=== PATIENT | male | born 1950 | race Caucasian/White ===

== ENCOUNTER 2018-02-21 09:28 | Day surgery (SDC) | payer MEDICARE, OTHER ==
[~2018-02-21 09:28] MED LIST: ACETAZOLAMIDE 250 MG TABLET PO ONE; Ak-Dilate OPHTHALMIC*** 0.71 ML, Cyclogyl 1% OPHTH SOL 5 ML 0.71 ML, GATIFLOXACIN 0.5% ... OP ONE; BETADINE 5% OPHTHALMIC 30 ML OP ONE; Lactated Ringers 1,000 ML IV ONE; Lactated Ringers 1,000 ML IV SCH; TETRACAINE 0.5% STERI-UNIT SOL OP ONE; Zofran 4 MG/2 ML VIAL IV PRN
[2018-02-21] MEDS ORDERED: DIPRIVAN 200 MG/20 ML IV ONE (09:29)
[2018-02-21 10:20] VITALS: O2SAT 96
[2018-02-21] MEDS ORDERED: BSS 500 ML, Fortaz/Tazicef 1 GM** 0.2 G IO ONE ×2 (12:00)
[2018-02-21] MEDS ORDERED: LIDOCAINE HCL 1% AMPUL 5 ML IJ ONE (12:00)
[2018-02-21] MEDS ORDERED: Epinephrine Preservative Free 1 MG/ML INTRAOP ONE (12:00)
[2018-02-21 13:11] VITALS: BP 145/71; PULSE 68
--- NOTE | 2018-02-21 13:25 | OP ---
DATE/TIME OF OPERATION: 02/21/2018 1155 TIME DICTATED: 1255 PREOPERATIVE DIAGNOSIS: Senile cataract of left eye. POSTOPERATIVE DIAGNOSIS: Senile cataract of left eye. SURGEON: Calli Booker MD LIFE INSURANCE AGENT: None. OPERATION: Cataract extraction of left eye with an intraocular lens implant. STANDARD COMPLEX ___X___ ANESTHESIA: MAC. ___X___ Monitored anesthesia care in combination with topical and intra-cameral anesthesia (because of the established specific risk of reflux, arrhythmias, or an anxiety attack associated with ocular manipulation as well as difficulty of the dining service inspector to manage such potentially catastrophic events while simultaneously attempting to complete the surgical procedure, it was deemed necessary for the patient's safety to have an anesthesiologist or a nurse freezer laboratory technician present during the procedure whenever possible. The anesthesiologist or the nurse freezer laboratory technician was utilized to monitor and regulate the intravenous sedation of the patient, so the patient was cooperative, relaxed, and comfortable). Topical anesthesia using Tetracaine eye drops together with intra cameral anesthesia using Lidocaine 1% MPF. The nurse was utilized to monitor the patient. ANESTHESIA PROVIDER: Jarrell Castro CRNA. COMPLICATIONS: None. BLOOD LOSS: None. INDICATIONS: The patient is undergoing cataract surgery in the hopes of eliminating the visual complaints and difficulty. PROCEDURE: After arriving at the facility's outpatient surgery area, an IV was started; the patient was given 5 mg of p.o. Versed. (If an anesthesia provider was not monitoring the patient) The patient was then given topical anesthetic Tetracaine eye drops. A cotton pellet was soaked into a solution of a combination of Zymaxid 0.5%, Darren-Synephrine 2.5% and Ocufen (other drops might have been substituted referenced in the patient's record). The pellet was inserted by the RN into the lower conjunctival cul-de-sac with a sterile forceps and left for 20 minutes. The pellet was then removed by the RN with a sterile forceps before taking the patient to the operating room. The preoperative area nurse identified the patient and marked the correct eye to be operated on. I identified the correct eye to be operated on and marked it appropriately in the outpatient surgery area. The patient was then taken into the operating room. Tetracaine eye drops were installed again in the correct eye. The eyelids and the lashes and the lid margins were scrubbed with Betadine solution. One drop of the diluted Betadine solution was placed in the conjunctival cul-de-sac for 45 seconds and then was irrigated. A drop of Tetracaine Gel was placed in the conjunctival cul-de-sac. The patient's forehead was taped to secure it during the procedure. The patient was monitored. The patient was then draped in the usual way for this procedure. An eye speculum was used to separate the eyelids. The eye was then fixated and a temporal 2.5 mm incision was made in the clear cornea temporally at the limbus. Through the incision, 0.25 cc of 1% non-preserved lidocaine was injected into the anterior chamber for intracameral anesthesia. The anterior chamber was then filled with viscoelastic. ___X__ The pupil was small. I felt that it would be safer to mechanically dilate the pupil. A Malyugin ring was used at this point which dilated the pupil. That was removed at the end of the procedure prior to aspiration of the viscoelastic from the anterior chamber and posterior to the intraocular lens implant. The cataract had a great amount of cortical changes. That rendered seeing the anterior capsule difficult for a safe performance of an anterior capsulotomy. I injected an air bubble into the anterior chamber. I then injected 1 ML of vision blue solution into the anterior chamber. The vision blue solution was irrigated from the anterior chamber after 30 seconds. The anterior capsule was stained which facilitated performing the anterior capsulotomy safely. After that was completed, a cystotome was introduced into the anterior chamber and a round anterior capsulotomy was performed. The capsule was removed by a forceps. Hydrodissection was next carried utilizing a 25-gauge cannula and balanced salt solution to delineate the cortical material from the capsule and the nucleus from the cortical material. The nucleus was rotated freely into the capsular bag with no difficulty. The phaco tip of the [employer] Phacoemulsifier was introduced into the anterior chamber and two grooves were made into the nucleus 90 degrees apart. Using two spatulas resulted into the nucleus being fractured into four quadrants. The phaco tip was then used to remove each quadrant of the nucleus. Viscoelastic was used during this process to protect the corneal endothelium. Once the entire nucleus was removed, the phaco tip then was removed and the irrigation tip was introduced into the eye and the cortex was removed. The posterior capsule was polished. It was noticed that there was a tear into the posterior capsule with few vitreous strands into the pupil plan. An anterior vitrectomy was performed. A 19.50 diopter, [id number], posterior chamber lens implant, was inspected and found to be grossly normal. The implant was inserted into the implant injector cartridge; Viscoelastic again was introduced into the anterior chamber, which filled the capsular bag. The implant injector's cartridge tip was placed at the limbal wound and the posterior chamber implant was released into the capsular bag and rotated appropriately. The implant was found to be into the capsular bag and it was centered. ___X__ 0.2 ml of Tri-Moxi was introduced via 27 gauge cannula into the vitreous cavity through the ciliary processes. Viscoelastic was aspirated from the anterior chamber and posterior to the intraocular lens implant from the capsular bag using the irrigating tip. The anterior chamber was irrigated and filled with 5 cc antibiotic solution (500 cc of BSS plus 2 ml of Fortaz 100 mg/ml) ( if patient was not allergic to the medication). The lips of the corneal incision were hydrated using BSS solution. The anterior chamber was checked and found to be water tight. One drop each of antibiotic, steroid and NSAID drops (refer to chart for drops used) were placed in the conjunctival cul-de-sac of the operated eye. Patient tolerated the procedure quite well and left the operating room in satisfactory condition. DISCHARGE SUMMARY: The patient was released in stable condition. The patient and those with the patient were given an instruction sheet as of how to care for the eye after surgery as well as counseling on any abnormal laboratory studies by the postoperative RN. The patient was also given an appointment card for follow-up in the office and is to call immediately for any difficulties including but not limited to pain in the eye, decreased vision, discharge from the eye, headache and or fever. DISCHARGE DIAGNOSIS: Pseudophakia of left eye.
== END 2018-02-21 13:19 | disposition home or self-care (01) ==
LOC: SDC 09:28
PROVIDERS: ATTEND Ophthalmology
DX: H25.9 Unspecified age-related cataract (principal); I10 Essential (primary) hypertension; K21.9 Gastro-esophageal reflux disease without esophagitis; N40.0 Benign prostatic hyperplasia without lower urinary tract symptoms; E78.00 Pure hypercholesterolemia, unspecified; Z79.899 Other long term (current) drug therapy
CPT/HCPCS: 66982; 67005; 94250; C1780; J0171; J2704; A9270-GY

== ENCOUNTER → 2018-07-24 | Emergency (ER) | payer MEDICARE, OTHER | LOC: ED 02:02 | DX: Z53.9 Procedure and treatment not carried out, unspecified reason (principal) ==

== ENCOUNTER 2019-06-27 17:23 | Emergency (ER) | payer MEDICARE, OTHER ==
--- NOTE | 2019-06-27 17:30 | ERPHSYRPT ---
- History of Present Illness Time Seen by Provider: 06/27/19 17:30 Historian: patient Exam Limitations: no limitations Physician History: Is a 69-year-old male who has history of gastroesophageal reflux disease on omeprazole and hypertension on lisinopril and amlodipine medication. The patient presents with left flank pain with radiation to his left groin and left lower quadrant. Patient has a history of nephrolithiasis. He has had ureteral stone on the right side in the past. Patient states the pain has been worsening. Patient denies chest pain, denies shortness of breath, denies nausea vomiting and diarrhea. Timing/Duration: today Quality: aching, stabbing Abdominal Pain Onset Location: LLQ, flank Pain Radiation: LLQ (Left), flank (Left), other (Left groin) Severity of Pain-Max: moderate Severity of Pain-Current: moderate Modifying Factors: Improves With: nothing Associated Symptoms: denies symptoms Previous symptoms: same symptoms as today Allergies/Adverse Reactions: No Known Drug Allergies Allergy (Verified 02/21/18 09:59) Home Medications: Amlodipine Besylate 10 mg [Norvasc 10 MG] 10 mg PO DAILY 04/25/12 [History] Lisinopril 20 mg PO DAILY 04/25/12 [History] Omeprazole [Prilosec] 40 mg PO DAILY 04/25/12 [History] Hx Tetanus, Diphtheria Vaccination/Date Given: Yes (UNSURE) Hx Influenza Vaccination/Date Given: Yes (FEBRUARY) Hx Pneumococcal Vaccination/Date Given: No - Review of Systems Constitutional: No Symptoms Eyes: No Symptoms Ears, Nose, & Throat: No Symptoms Respiratory: No Symptoms Cardiac: No Symptoms Abdominal/Gastrointestinal: Abdominal Pain (Left lower quadrant and left groin) Genitourinary Symptoms: Flank Pain (Left flank) Musculoskeletal: No Symptoms Skin: No Symptoms Neurological: No Symptoms Psychological: No Symptoms Endocrine: No Symptoms Hematologic/Lymphatic: No Symptoms Immunological/Allergic: No Symptoms All Other Systems: Reviewed and Negative - Past Medical History Pertinent Past Medical History: Yes Neurological History: No Pertinent History ENT History: No Pertinent History Cardiac History: Hypertension Respiratory History: No Pertinent History Endocrine Medical History: No Pertinent History Musculoskeletal History: No Pertinent History GI Medical History: Colitis, Diverticulitis History: No Pertinent History, Other Psycho-Social History: No Pertinent History Male Reproductive Disorders: Prostate Problems Other Medical History: ENLARGED PROSTATE - Past Surgical History Past Surgical History: No Neuro Surgical History: No Pertinent History Cardiac: No Pertinent History Respiratory: No Pertinent History Gastrointestinal: Hernia Repair Genitourinary: No Pertinent History Musculoskeletal: No Pertinent History Male Surgical History: No Pertinent History Other Surgical History: RIGHT INGUINAL HERNIA and colonoscopy - Social History Smoking Status: Former smoker Exposure to second hand smoke: No Drug Use: none Patient Lives Alone: No - Nursing Vital Signs Nursing Vital Signs: Initial Vital Signs Temperature 97.8 F 06/27/19 17:50 Pulse Rate 96 H 06/27/19 17:50 Respiratory Rate 21 06/27/19 17:50 Blood Pressure 173/97 06/27/19 17:50 O2 Sat by Pulse Oximetry 97 06/27/19 17:50 Pain Scale Pain Intensity 7 - Physical Exam General Appearance: mild distress, alert, anxiety Eye Exam: PERRL/EOMI Ears, Nose, Throat Exam: normal ENT inspection, moist mucous membranes Neck Exam: normal inspection, non-tender, supple, full range of motion Respiratory Exam: normal breath sounds, lungs clear, airway intact, No chest tenderness, No respiratory distress Gastrointestinal/Abdomen Exam: soft, normal bowel sounds, No tenderness, No guarding Back Exam: normal inspection, normal range of motion, CVA tenderness (Left), No vertebral tenderness Extremity Exam: normal inspection, normal range of motion, pelvis stable Neurologic Exam: alert, oriented x 3, cooperative, 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 Skin Exam: normal color, warm, dry Lymphatic Exam: adenopathy SpO2 Interpretation: normal O2 Delivery: Room Air Ordered Tests: Active Orders 24 hr Category Date Time Status ABDOMEN AND PELVIS W/0 CONTRAS [CT] Stat Exams 06/27/19 18:13 Taken UA W/RFX UR CULTURE Stat Lab 06/27/19 17:50 Completed Medication Summary Discontinued Medications Generic Name Dose Route Start Last Admin Trade Name Freq PRN Reason Stop Dose Admin Hydromorphone HCl 1 mg 06/27/19 18:11 06/27/19 18:49 Hydromorphone 1 Mg/Ml Ampule IM 06/27/19 18:12 1 mg STAT ONE Administration Hydromorphone HCl Confirm 06/27/19 18:47 Hydromorphone 1 Mg/Ml Ampule Administered 06/27/19 18:48 Dose 1 mg .ROUTE .STK-MED ONE Ketorolac Tromethamine 60 mg 06/27/19 18:14 06/27/19 18:48 Toradol 30 Mg Injection IM 06/27/19 18:15 60 mg STAT ONE Administration Ketorolac Tromethamine Confirm 06/27/19 18:47 Toradol 30 Mg Injection Administered 06/27/19 18:48 Dose 60 mg .ROUTE .STK-MED ONE Ondansetron HCl 4 mg 06/27/19 18:11 06/27/19 18:49 Zofran Odt 4 Mg PO 06/27/19 18:12 4 mg STAT ONE Administration Ondansetron HCl Confirm 06/27/19 18:47 Zofran Odt 4 Mg Administered 06/27/19 18:48 Dose 4 mg .ROUTE .STK-MED ONE Lab/Rad Data: Laboratory Results 06/27/19 Range/Units 17:50 Urine Color YELLOW (YELLOW) Urine Appearance SLIGHTLY CLOUDY (CLEAR) Urine pH 6.0 (5-6) Ur Specific [place] 1.015 (1.005-1.025) Urine Protein NEGATIVE (Negative) Urine Ketones NEGATIVE (NEGATIVE) Urine Blood LARGE (0-5) [place] Urine Nitrite NEGATIVE (NEGATIVE) Urine Bilirubin NEGATIVE (NEGATIVE) Urine Urobilinogen NEGATIVE (0-1) mg/dL Ur Leukocyte Esterase SMALL (NEGATIVE) Urine WBC (Auto) 0-2 (0-5) /HPF Urine RBC (Auto) >101 (0-2) /HPF U Epithel Cells (Auto) NONE (FEW) /HPF Urine Bacteria (Auto) NONE (NEGATIVE) /HPF Urine Mucus (Auto) SLIGHT (NEGATIVE) /HPF Urine Culture Reflexed NO (NO) Urine Glucose NEGATIVE (NEGATIVE) mg/dL - Progress Progress: improved, pain not gone completely, re-examined Progress Note: 06/27/19 18:57 Scan of the abdomen and pelvis reveals a new 3 to 4 mm distal left ureteral stone. Minimal hydroureter and mild hydronephrosis present and minimal perinephric stranding. There are no other acute intra-abdominal findings Counseled pt/family regarding: lab results, diagnosis, need for follow-up, rad results - Departure Departure Disposition: Home Clinical Impression: Ureterolithiasis Condition: Stable Critical Care Time: No Referrals: ETHEL GARNER MD [Primary Care Provider] - Additional Instructions: Drink plenty of fluids. Add ibuprofen 600 mg orally 3 times a day with food. Call your urologist tomorrow to arrange for follow-up appointment. Prescriptions: Hydrocodone/APAP 5-325 Tab^^^ [[place] 5-325 Tablet^^^] 1 tab PO Q6HPRN PRN #10 tablet MDD 6 PRN Reason: Pain
[2019-06-27 17:57] VITALS: BP 173/97
[2019-06-27 18:09] VITALS: PULSE 84; O2SAT 95
[2019-06-27] MEDS ORDERED: ZOFRAN ODT 4 MG PO ONE (18:11)
[2019-06-27] MEDS ORDERED: Hydromorphone 1 mg/ml Ampule IM ONE (18:11)
[2019-06-27] MEDS ORDERED: TORAdol 30 mg Injection IM ONE (18:14)
[2019-06-27 18:34] LABS: Appearance SLIGHTLY CLOUDY (CLEAR); Bilirubin NEGATIVE (NEGATIVE); Blood LARGE Ery/ul (0-5); Glucose NEGATIVE (NEGATIVE); Ketones NEGATIVE (NEGATIVE); Leukocyte Esterase SMALL (NEGATIVE); Mucus SLIGHT /HPF (NEGATIVE); Nitrite NEGATIVE (NEGATIVE); Protein,Urine Dip NEGATIVE (Negative); Specific Gravity 1.015 (1.005-1.025); Urobilinogen NEGATIVE mg/dL (0-1); WBC 0-2 /HPF (0-5)
[2019-06-27 18:35] LABS: RBC >101 /HPF (0-2)
[2019-06-27] MEDS ORDERED: ZOFRAN ODT 4 MG ONE (18:47)
[2019-06-27] MEDS ORDERED: TORAdol 30 mg Injection ONE (18:47)
[2019-06-27] MEDS ORDERED: Hydromorphone 1 mg/ml Ampule ONE (18:47)
[2019-06-27] MEDS ORDERED: NORCO 5/325 MG PO ONE (19:08)
[2019-06-27] MEDS ORDERED: NORCO 5/325 MG ONE (19:15)
--- NOTE | 2019-06-28 08:44 | XRAY ---
Indication: Left abdomen/flank pain. Multiple contiguous axial images obtained through the abdomen and pelvis without contrast as ordered. Comparison: November 19, 2016. Lung bases demonstrates minimal fibrosis/scarring without infiltrate or effusion. Heart is not enlarged. Noncontrasted stomach and bowel loops appear nonobstructed. Normal appendix. Stable sigmoid diverticulosis. No free fluid/air. New 3-4 mm distal left ureter calculus approximately 3 cm proximal to the UVJ. Proximal left ureter is slightly prominent and there is mild hydronephrosis with minimal perinephric stranding consistent with partial obstructive uropathy. Stable hepatic cyst, gallstones, enlarged/nodular prostate gland, and small bilateral fatty inguinal hernias. Remaining liver, gallbladder, pancreas, spleen, adrenal glands, right kidney, right ureter, and bladder appear unremarkable for noncontrast exam. Again mild aortoiliac calcifications without AAA. Osseous structures intact with stable multilevel thoracolumbosacral lytic and sclerotic lesions favored to be benign given stability over the years. Impression: 1. New 3-4 mm distal left ureter calculus producing partial obstruction. 2. Stable hepatic cyst, sigmoid diverticulosis, gallstones, enlarged/nodular prostate gland, fatty inguinal hernias, and chronic bony findings.
== END 2019-06-27 19:27 | disposition home or self-care (01) ==
LOC: ED 17:23
DX: N20.1 Calculus of ureter (principal); I10 Essential (primary) hypertension; Z79.899 Other long term (current) drug therapy; R10.9 Unspecified abdominal pain; R10.32 Left lower quadrant pain
CPT/HCPCS: 74176; 81001; 96372; 99284; J1170; J1885; Q0162; A9270-GY

== ENCOUNTER 2022-03-20 02:29 | Emergency (ER) | payer MEDICARE, OTHER ==
[2022-03-20] MEDS ORDERED: Sodium Chloride 0.9% 1000 ML 1,000 ML IV STA ×2 (02:41→04:24)
[2022-03-20] MEDS ORDERED: Sodium Chloride 0.9% 1000 ML 1,000 ML ONE ×2 (02:53→04:27)
[2022-03-20 03:02] LABS: Absolute Neutrophil Ct (ANC) 5.63 x10^3/uL (1.4-6.9); Basophil (Absolute #) 0.05 x10^3/uL (0-0.4); Eosinophil % 3.8 % (0.00-5.0); Eosinophil (Absolute #) 0.31 x10^3/uL (0-0.5); Hematocrit 41.8 % (42-50); Hemoglobin 14.5 g/dL (12.5-18.0); Lymphocyte (Absolute #) 1.48 x10^3/uL (1.0-4.6); Mean Cell Volume 87.8 fL (78-100); Mean Corpuscular Hemoglobin 30.5 pg (26-32); Mean Corpuscular Hgb Concent. 34.7 g/dL (32-36); Mean Platelet Volume 8.7 fL (7.5-11.0); Monocyte (Absolute #) 0.69 x10^3/uL (0.0-1.3); Monocytes % 8.4 % (0.0-12.0); Neutrophil % 68.3 % (36.0-66.0); Platelet Count 299 x10^3/uL (150-450); Red Blood Count 4.76 x10^6/uL (4.1-5.6); Red Cell Distribution Width 12.5 % (11.5-14.0); White Blood Count 8.2 x10^3/uL (4.0-10.5)
[2022-03-20 03:29] LABS: ALBUMIN 3.9 g/dL (3.5-5.0); ALKALINE PHOSPHATASE 81 U/L (38-126); ANION GAP 11.5 MEQ/L (5-15); BLOOD UREA NITROGEN 17 mg/dL (9-20); CHLORIDE 107 mmol/L (98-107); Calcium 9.2 mg/dL (8.4-10.2); Carbon Dioxide 24 mmol/L (22-30); Creatinine 1 1.34 mg/dL (0.66-1.25); EST GLOMERULAR FILTRATION RATE 56.2 ML/MIN; Glucose 123 mg/dL (74-106); MAGNESIUM 1.8 mg/dL (1.6-2.3); Potassium 3.1 mmol/L (3.5-5.1); SGOT/AST 49 U/L (17-59); SGPT/ALT 19 U/L (0-50); SODIUM 140 mmol/L (137-145); TROPONIN < 0.012 ng/mL (0.000-0.034); Total Protein 6.7 g/dL (6.3-8.2)
[2022-03-20 03:40] LABS: Appearance CLEAR (CLEAR); Bilirubin NEGATIVE (NEGATIVE); Dipstick done @ ? MAIN LAB; Glucose NEGATIVE (NEGATIVE); Ketones SMALL-15 (NEGATIVE); Nitrite NEGATIVE (NEGATIVE); Ph 6.5 (5-6); Protein,Urine Dip NEGATIVE (Negative); RBC NEGATIVE Ery/ul (0-5); Urobilinogen 0.2 mg/dL (0-1)
[2022-03-20 03:42] LABS: INFLUENZA A NEGATIVE (NEGATIVE); INFLUENZA B NEGATIVE (NEGATIVE); RESPIRATORY SYNCTIAL VIRUS NEGATIVE (Negative)
[2022-03-20 03:49] LABS: Mucus SLIGHT /HPF (NEGATIVE); RBC 0-2 /HPF (0-2)
[2022-03-20 04:01] LABS: SARS-CoV-2 Xpert Express POSITIVE (NEGATIVE)
[2022-03-20 04:17] LABS: Urine Cultured Indicated? NO
[2022-03-20] MEDS ORDERED: POTASSIUM CHLORIDE 20 mEq IN WATER 100ML 200 ML IV ONE (04:27)
[2022-03-20] MEDS: POTASSIUM CHLORIDE 20 mEq IN WATER 100ML 20 MEQ/100 ML BAG IV SCH ×2 (04:31→06:22)
--- NOTE | 2022-03-20 06:46 | ERPHSYRPT ---
- History of Present Illness Source: patient, EMS Exam Limitations: no limitations Patient Subjective Stated Complaint: pt states he has been feeling ill for the past 2 weeks. states heh has been feeling nauseous, has frequent cough, and some congestion. states he has not been taking his medications since he has been feeling sick. Triage Nursing Assessment: pt alert and oriented, answers questions approp. pt arrive per ambulance and transfers to stretcher per self with steady gait noted. respirations nonlabored with lungs cta. skin warm and dry. occasional cough note d. pt states productive at home. Timing/Duration: week(s) (two weeks) Associated Symptoms: cough, malaise, weakness Hx Tetanus, Diphtheria Vaccination/Date Given: Yes Hx Influenza Vaccination/Date Given: No Hx Pneumococcal Vaccination/Date Given: No Immunizations Up to Date: Yes - History of Present Illness Time Seen by Provider: 03/20/22 06:41 Physician History: pt states he has been feeling ill for the past 2 weeks. states heh has been feeling nauseous, has frequent cough, and some congestion. states he has not been taking his medications since he has been feeling sick. (MAGALIS,MINA) Allergies/Adverse Reactions: No Known Drug Allergies Allergy (Verified 03/20/22 02:45) Home Medications: Amlodipine Besylate 10 mg [Norvasc 10 MG] 10 mg PO DAILY 04/25/12 [History] Lisinopril 20 mg PO DAILY 04/25/12 [History] Omeprazole [Prilosec] 40 mg PO DAILY 04/25/12 [History] Travel Risk - International Travel Have you traveled outside of the country in past 3 weeks: No - Coronavirus Screening Are you exhibiting any of the following symptoms?: Yes Symptoms: Cough: New Onset, Headaches/Body Aches/Fatigue Close contact with a COVID-19 positive Pt in past 14-21 Days: No - Vaccine Status Have you recieved a Covid-19 vaccination: No - Review of Systems Constitutional: Malaise, Weakness, No Fever, No Chills Eyes: No Symptoms Ears, Nose, & Throat: No Symptoms Respiratory: Cough, No Dyspnea Cardiac: No Chest Pain, No Edema, No Syncope Abdominal/Gastrointestinal: No Abdominal Pain, No Nausea, No Vomiting, No Diarrhea Genitourinary Symptoms: No Dysuria Musculoskeletal: No Back Pain, No Neck Pain Skin: No Rash Neurological: No Dizziness, No Focal Weakness, No Sensory Changes Psychological: No Symptoms Endocrine: No Symptoms All Other Systems: Reviewed and Negative - Past Medical History Pertinent Past Medical History: Yes Neurological History: No Pertinent History ENT History: No Pertinent History Cardiac History: Hypertension Respiratory History: No Pertinent History Endocrine Medical History: No Pertinent History Musculoskeletal History: No Pertinent History GI Medical History: Colitis, Diverticulitis History: No Pertinent History, Other Psycho-Social History: No Pertinent History Male Reproductive Disorders: Prostate Problems Other Medical History: ENLARGED PROSTATE - Past Surgical History Past Surgical History: Yes Neuro Surgical History: No Pertinent History Cardiac: No Pertinent History Respiratory: No Pertinent History Gastrointestinal: Hernia Repair Genitourinary: No Pertinent History Musculoskeletal: No Pertinent History Male Surgical History: No Pertinent History Other Surgical History: RIGHT INGUINAL HERNIA and colonoscopy - Social History Smoking Status: Former smoker Exposure to second hand smoke: No Drug Use: none Patient Lives Alone: Yes - Physical Exam General Appearance: no apparent distress, alert Eye Exam: PERRL/EOMI, eyes nml inspection Ears, Nose, Throat Exam: normal ENT inspection, TMs normal, pharynx normal, moist mucous membranes Neck Exam: normal inspection, non-tender, supple, full range of motion Respiratory Exam: diminished breath sounds, No respiratory distress Cardiovascular Exam: regular rate/rhythm, normal heart sounds, normal peripheral pulses Gastrointestinal/Abdomen Exam: soft, normal bowel sounds, No tenderness, No mass Back Exam: normal inspection, normal range of motion, No CVA tenderness, No vertebral tenderness Extremity Exam: normal inspection, normal range of motion, pelvis stable Neurologic Exam: alert, oriented x 3, cooperative, normal mood/affect, nml cer ebellar function, nml station & gait, sensation nml, No motor deficits Skin Exam: normal color, warm, dry, No rash Lymphatic Exam: No adenopathy SpO2: 95 - Nursing Vital Signs Nursing Vital Signs: Initial Vital Signs Temperature 97.1 F 03/20/22 02:31 Pulse Rate 98 H 03/20/22 02:31 Respiratory Rate 18 03/20/22 02:31 Blood Pressure 166/101 03/20/22 02:31 O2 Sat by Pulse Oximetry 98 03/20/22 02:31 Pain Scale Pain Intensity 0 - Course Nursing assessment & vital signs reviewed: Yes - Radiology Exams Chest X-ray Interpretation: Reviewed by me (COPD changes), No Pneumonia Ordered Tests: Active Orders 24 hr Category Date Time Status Manager Reliability STAT Care 03/20/22 04:25 Completed EKG-ER Only STAT Care 03/20/22 02:41 Completed Oxygen-ED Only Nasal Cannula 2 lpm Care 03/20/22 02:41 Completed CHEST 1 VIEW (PORTABLE) Stat Exams 03/20/22 02:41 Completed CBC W DIFF Stat Lab 03/20/22 02:59 Completed CMP Stat Lab 03/20/22 02:59 Completed MAGNESIUM Stat Lab 03/20/22 02:59 Completed Potassium Urgent Lab 03/20/22 08:54 Completed TROPONIN Stat Lab 03/20/22 02:59 Completed UA W/RFX CULTURE Stat Lab 03/20/22 03:31 Completed Medication Summary Discontinued Medications Generic Name Dose Route Start Last Admin Trade Name Freq PRN Reason Stop Dose Admin Sodium Chloride 1,000 mls @ 999 mls/hr 03/20/22 02:41 03/20/22 04:27 Sodium Chloride 0.9% 1000 Ml IV 03/20/22 03:41 Infused .Q1H1M STA Infusion Sodium Chloride Confirm 03/20/22 02:53 Sodium Chloride 0.9% 1000 Ml Administered 03/20/22 02:54 Dose 1,000 mls @ ud .ROUTE .STK-MED ONE Potassium Chloride 20 meq in 100 mls @ 50 mls/hr 03/20/22 04:30 03/20/22 06:22 Potassium Chloride 20 Meq In Water 100ml IV 03/20/22 08:29 50 mls/hr Q2H ANASTACIO Administration Sodium Chloride 1,000 mls @ 250 mls/hr 03/20/22 04:24 03/20/22 09:00 Sodium Chloride 0.9% 1000 Ml IV 03/20/22 08:23 Infused .Q4H STA Infusion Sodium Chloride Confirm 03/20/22 04:27 Sodium Chloride 0.9% 1000 Ml Administered 03/20/22 04:28 Dose 1,000 mls @ ud .ROUTE .STK-MED ONE Potassium Chloride Confirm 03/20/22 04:27 Potassium Chloride 20 Meq In Water 100ml Administered 03/20/22 04:28 Dose 200 mls @ ud IV .STK-MED ONE Potassium Chloride Confirm 03/20/22 07:40 Potassium Chloride Tab 10 Meq Tab Administered 03/20/22 07:41 Dose 40 meq PO .STK-MED ONE Potassium Chloride 40 meq 03/20/22 07:41 03/20/22 07:42 Potassium Chloride Tab 10 Meq Tab PO 03/20/22 07:42 40 meq STAT ONE Administration Lab/Rad Data: Laboratory Result Diagrams 03/20/22 02:59 03/20/22 08:54 Laboratory Results 03/20/22 03/20/22 03/20/22 Range/Units 08:54 03:31 02:59 WBC (4.0-10.5) x10^3/uL RBC (4.1-5.6) x10^6/uL Hgb (12.5-18.0) g/dL Hct (42-50) % MCV (78-100) fL MCH (26-32) pg MCHC (32-36) g/dL RDW (11.5-14.0) % Plt Count (150-450) x10^3/uL MPV (7.5-11.0) fL Gran % (36.0-66.0) % Immature Gran % (Auto) (0.00-0.4) % Nucleat RBC Rel Count (0.00-0.1) % Eos # (Auto) (0-0.5) x10^3/uL Immature Gran # (Auto) (0.00-0.03) x10^3u/L Absolute Lymphs (auto) (1.0-4.6) x10^3/uL Absolute Monos (auto) (0.0-1.3) x10^3/uL Absolute Nucleated RBC (0.00-0.01) x10^3u/L Lymphocytes % (24.0-44.0) % Monocytes % (0.0-12.0) % Eosinophils % (0.00-5.0) % Basophils % (0.0-0.4) % Absolute Granulocytes (1.4-6.9) x10^3/uL Basophils # (0-0.4) x10^3/uL Sodium (137-145) mmol/L Potassium 3.7 (3.5-5.1) mmol/L Chloride (98-107) mmol/L Carbon Dioxide (22-30) mmol/L Anion Gap (5-15) MEQ/L BUN (9-20) mg/dL Creatinine (0.66-1.25) mg/dL Estimated GFR ML/MIN Glucose (74-106) mg/dL Calcium (8.4-10.2) mg/dL Magnesium (1.6-2.3) mg/dL Total Bilirubin (0.2-1.3) mg/dL AST (17-59) U/L ALT (0-50) U/L Alkaline Phosphatase (38-126) U/L Troponin I (0.000-0.034) ng/mL Serum Total Protein (6.3-8.2) g/dL Albumin (3.5-5.0) g/dL Urinalys Dipstick Clnc MAIN LAB Urine Color YELLOW (YELLOW) Urine Appearance CLEAR (CLEAR) Urine pH 6.5 (5-6) Ur Specific [place] 1.020 (1.005-1.025) POC Urine Protein Conf NEGATIVE (Negative) Urine Ketones SMALL-15 A (NEGATIVE) Urine Nitrite NEGATIVE (NEGATIVE) Urine Bilirubin NEGATIVE (NEGATIVE) Urine Urobilinogen 0.2 (0-1) mg/dL Urine Leukocytes NEGATIVE (NEGATIVE) Urine WBC (Auto) 3-5 A (0-5) /HPF Urine RBC (Auto) 0-2 (0-2) /HPF U Epithel Cells (Auto) NONE (FEW) /HPF Urine Bacteria (Auto) NONE (NEGATIVE) /HPF Urine RBC NEGATIVE (0-5) [place] Urine Mucus (Auto) SLIGHT A (NEGATIVE) /HPF Ur Culture Indicated? NO Urine Glucose NEGATIVE (NEGATIVE) mg/dL Influenza Type A Ag NEGATIVE (NEGATIVE) Influenza Type B Ag NEGATIVE (NEGATIVE) RSV (PCR) NEGATIVE (Negative) SARS-CoV-2 (PCR) POSITIVE A (NEGATIVE) 03/20/22 03/20/22 Range/Units 02:59 02:59 WBC 8.2 (4.0-10.5) x10^3/uL RBC 4.76 (4.1-5.6) x10^6/uL Hgb 14.5 (12.5-18.0) g/dL Hct 41.8 L (42-50) % MCV 87.8 (78-100) fL MCH 30.5 (26-32) pg MCHC 34.7 (32-36) g/dL RDW 12.5 (11.5-14.0) % Plt Count 299 (150-450) x10^3/uL MPV 8.7 (7.5-11.0) fL Gran % 68.3 H (36.0-66.0) % Immature Gran % (Auto) 0.9 H (0.00-0.4) % Nucleat RBC Rel Count 0.0 (0.00-0.1) % Eos # (Auto) 0.31 (0-0.5) x10^3/uL Immature Gran # (Auto) 0.07 H (0.00-0.03) x10^3u/L Absolute Lymphs (auto) 1.48 (1.0-4.6) x10^3/uL Absolute Monos (auto) 0.69 (0.0-1.3) x10^3/uL Absolute Nucleated RBC 0.00 (0.00-0.01) x10^3u/L Lymphocytes % 18.0 L (24.0-44.0) % Monocytes % 8.4 (0.0-12.0) % Eosinophils % 3.8 (0.00-5.0) % Basophils % 0.6 (0.0-0.4) % Absolute Granulocytes 5.63 (1.4-6.9) x10^3/uL Basophils # 0.05 (0-0.4) x10^3/uL Sodium 140 (137-145) mmol/L Potassium 3.1 L (3.5-5.1) mmol/L Chloride 107 (98-107) mmol/L Carbon Dioxide 24 (22-30) mmol/L Anion Gap 11.5 (5-15) MEQ/L BUN 17 (9-20) mg/dL Creatinine 1.34 H (0.66-1.25) mg/dL Estimated GFR 56.2 ML/MIN Glucose 123 H (74-106) mg/dL Calcium 9.2 (8.4-10.2) mg/dL Magnesium 1.8 (1.6-2.3) mg/dL Total Bilirubin 1.30 (0.2-1.3) mg/dL AST 49 (17-59) U/L ALT 19 (0-50) U/L Alkaline Phosphatase 81 (38-126) U/L Troponin I < 0.012 (0.000-0.034) ng/mL Serum Total Protein 6.7 (6.3-8.2) g/dL Albumin 3.9 (3.5-5.0) g/dL Urinalys Dipstick Clnc Urine Color (YELLOW) Urine Appearance (CLEAR) Urine pH (5-6) Ur Specific [place] (1.005-1.025) POC Urine Protein Conf (Negative) Urine Ketones (NEGATIVE) Urine Nitrite (NEGATIVE) Urine Bilirubin (NEGATIVE) Urine Urobilinogen (0-1) mg/dL Urine Leukocytes (NEGATIVE) Urine WBC (Auto) (0-5) /HPF Urine RBC (Auto) (0-2) /HPF U Epithel Cells (Auto) (FEW) /HPF Urine Bacteria (Auto) (NEGATIVE) /HPF Urine RBC (0-5) [place] Urine Mucus (Auto) (NEGATIVE) /HPF Ur Culture Indicated? Urine Glucose (NEGATIVE) mg/dL Influenza Type A Ag (NEGATIVE) Influenza Type B Ag (NEGATIVE) RSV (PCR) (Negative) SARS-CoV-2 (PCR) (NEGATIVE) - Progress Progress: improved Counseled pt/family regarding: lab results, diagnosis, need for follow-up, rad results - Progress Progress Note: 03/20/22 09:46 71-year-old is evaluated for generalized weakness fatigue, nausea and cough with a positive COVID-19. The patient is given fluids and was found to have some hypokalemia for which he is getting replacement and patient was supposed to be recheck potassium after replacement. During my evaluation patient is not in any distress and feeling much better. He is being discharged with outpatient follow-up. Please see 's H&P. (RUSSEL HERMAN) - Departure Departure Disposition: Home Critical Care Time: Yes Critical Care Time(excluding separately billable procedures): Critical 30-74 mins - Departure Clinical Impression: Hypokalemia, COVID-19 Condition: Stable Referrals: ETHEL GARNER MD [Primary Care Provider] - Follow up/PCP as directed Instructions: Hypokalemia (DC), High Potassium Diet, Cough, Adult (DC), COVID- 19 (DC), Preventing the Spread of an Infectious Disease Additional Instructions: Discharge/Care Plan CHATO GARG was seen on 03/20/22 in the Emergency Room. The patient was counseled regarding Diagnosis,Lab results, Imaging studies, need for follow up and when to return to the Emergency Room. Prescriptions given: Discharge Note I have spoken with the patient and/or caregivers. I have explained the patient's condition, diagnosis and treatment plan based on the information available to me at this time. I have answered the patient's and/or caregiver's questions and addressed any concerns. The patient and/or caregivers have as good understanding of the patient's diagnosis, condition and treatment plan as can be expected at this point. The vital signs have been stable. The patient's condition is stable and appropriate for discharge from the emergency department. The patient will pursue further outpatient evaluation with the primary care physician or other designated or consulting physician as outlined in the discharge instructions. The patient and/or caregivers are agreeable to this plan of care and follow-up instructions have been explained in detail. The patient and/or caregivers have received these instruction. The patient/and or caregivers are aware that any significant change in condition or worsening of symptoms should prompt an immediate return to this or the closest emergency department or call 911. CHATO GARG was seen on 03/20/22 n the Emergency Room. At that time you were treated for an emergent condition, during your visit Laboratory, Radi ology and/or other procedures may have been ordered. It is very important that you follow-up with your Primary Care Physician ETHEL GARNER within the next 24-48 hours to review your Emergency Room visit and the final results of testing that was ordered. Some test results such as Urine Cultures, Blood Cultures, and other cultures if ordered will not be finalized for 24-48 hours. If you do not have a Primary Care Provider please call the medical records department at [phone] to obtain a copy of your results or you may sign into our patient portal to obtain these results by visiting us @ [email or web address] and completing the following steps: 1. Click on the Patient Portal link 2. Click the Patient Self Enrollment Link to complete the enrollment form and entering your 3. Once the enrollment form is completed you will receive an email with a temporary ID and password at the email address you provided. 4. Next choose a user name and password. Your user name must be at least 4 savana racters long and your password must be at least 4 characters long. 5. Choose a security question from the list and provide your answer to the question. If you already have signed into the Health Portal you may access your Health Care Information 29/11 by the following steps: 1. Login to our website @ [email or web address] 2. Enter your original user name and password. FAQS The [facility] Health Portal is an online tool that contains your Lab Results, Radiology Reports, Visit History, Discharge Instructions and Health Summary Lab and Radiology Results will not be available for 72 hours on the portal. The Portal is a secure site, passwords are encryted and URLs are re-written so they cannot be copied and pasted. You and authorized family members are the only ones who can access your Portal. Also there is a timeout feature that protects your information if you leave the Portal page open. If you have technical difficulty please use the Contact Us link on the page this will allow you to submit any questions you have regarding the Portal or you may contact the Medical Record Department at [phone]. Prescriptions: Potassium Chloride [Klor-Con 10] 10 meq PO DAILY #15 tablet
--- NOTE | 2022-03-20 07:08 | XRAY ---
Indication: Cough. Comparison: None Portable chest hyperinflated and clear with incidental left upper lung calcified granulomas. Heart and mediastinal structures within normal limits with mild tortuous descending aorta. Bony thorax intact with mild osteopenia and degenerative changes. Impression: Nonacute chest with chronic features.
[2022-03-20] MEDS ORDERED: Klor Con PO ONE ×2 (07:40→07:41)
[2022-03-20 07:44] VITALS: O2SAT 96
[2022-03-20 09:28] VITALS: BP 170/80; PULSE 76
== END 2022-03-20 09:28 | disposition home or self-care (01) ==
LOC: ED 02:29
DX: U07.1 COVID-19 (principal); E87.6 Hypokalemia; R11.0 Nausea; R05.9 Cough, unspecified; R09.81 Nasal congestion; I10 Essential (primary) hypertension; Z79.899 Other long term (current) drug therapy; Z28.310 Unvaccinated for COVID-19
CPT/HCPCS: 0241U; 36415; 71045; 80053; 81015; 83735; 84132; 84484; 85025; 93005; 93041; 96360; 96361; 96365; 96366; 99284; 99291; J3480; A9270-GY

== ENCOUNTER 2022-05-31 02:31 | Emergency (ER) | payer MEDICARE, OTHER ==
[2022-05-31] MEDS ORDERED: TORAdol 30 mg Injection IV ONE (02:40)
[2022-05-31] MEDS ORDERED: Zofran 4 MG/2 ML VIAL IV ONE (02:40)
[2022-05-31 02:49] VITALS: O2SAT 97
[2022-05-31] MEDS ORDERED: Zofran 4 MG/2 ML VIAL ONE (02:52)
[2022-05-31] MEDS ORDERED: TORAdol 30 mg Injection ONE (02:52)
[2022-05-31 02:53] LABS: Absolute Neutrophil Ct (ANC) 14.17 x10^3/uL (1.4-6.9); BASOPHIL % 0.5 % (0.0-0.4); Basophil (Absolute #) 0.09 x10^3/uL (0-0.4); Eosinophil % 0.6 % (0.00-5.0); Eosinophil (Absolute #) 0.11 x10^3/uL (0-0.5); Hemoglobin 16.1 g/dL (12.5-18.0); IMMATURE GRAN # 0.07 x10^3u/L (0.00-0.03); IMMATURE GRAN % 0.4 % (0.00-0.4); Lymphocyte (Absolute #) 1.78 x10^3/uL (1.0-4.6); Lymphocytes % 10.5 % (24.0-44.0); Mean Cell Volume 91.3 fL (78-100); Mean Corpuscular Hemoglobin 30.6 pg (26-32); Mean Corpuscular Hgb Concent. 33.5 g/dL (32-36); Mean Platelet Volume 8.9 fL (7.5-11.0); Monocyte (Absolute #) 0.73 x10^3/uL (0.0-1.3); Monocytes % 4.3 % (0.0-12.0); Neutrophil % 83.7 % (36.0-66.0); Platelet Count 310 x10^3/uL (150-450); Red Blood Count 5.26 x10^6/uL (4.1-5.6); Red Cell Distribution Width 12.8 % (11.5-14.0)
--- NOTE | 2022-05-31 03:04 | ERPHSYRPT ---
- History of Present Illness Time Seen by Provider: 05/31/22 02:33 Source: patient Exam Limitations: no limitations Patient Subjective Stated Complaint: pt states he has chronic back pain issues, in the last two weeks his pain is worse. Stabbing, constant, pain in back that radiates to stomach and right groin Triage Nursing Assessment: pt rates pain 9/10 Physician History: Patient has right flank pain. Radiates into his right groin. No falls or other trauma. Patient states that this has been going on for approximately 2 to 3 days. Worsening today. Patient does have a history of kidney stones. He has no difficulty urinating. Patient has no difficulty with pooping. Allergies/Adverse Reactions: No Known Drug Allergies Allergy (Verified 03/20/22 02:45) Home Medications: Amlodipine Besylate 10 mg [Norvasc 10 MG] 10 mg PO DAILY 04/25/12 [History] Lisinopril 20 mg PO DAILY 04/25/12 [History] Omeprazole [Prilosec] 40 mg PO DAILY 04/25/12 [History] Hx Tetanus, Diphtheria Vaccination/Date Given: Yes Hx Influenza Vaccination/Date Given: No Hx Pneumococcal Vaccination/Date Given: No Travel Risk - International Travel Have you traveled outside of the country in past 3 weeks: No - Coronavirus Screening Are you exhibiting any of the following symptoms?: No Close contact with a COVID-19 positive Pt in past 14-21 Days: No - Vaccine Status Have you recieved a Covid-19 vaccination: No - Review of Systems Constitutional: No Fever, No Chills Eyes: No Symptoms Ears, Nose, & Throat: No Symptoms Respiratory: No Cough, No Dyspnea Cardiac: No Chest Pain, No Edema, No Syncope Abdominal/Gastrointestinal: No Abdominal Pain, No Nausea, No Vomiting, No Diarrhea Genitourinary Symptoms: Flank Pain, No Dysuria Musculoskeletal: No Back Pain, No Neck Pain Skin: No Rash Neurological: No Dizziness, No Focal Weakness, No Sensory Changes Psychological: No Symptoms Endocrine: No Symptoms All Other Systems: Reviewed and Negative - Past Medical History Pertinent Past Medical History: Yes Neurological History: No Pertinent History ENT History: No Pertinent History Cardiac History: Hypertension Respiratory History: No Pertinent History Endocrine Medical History: No Pertinent History Musculoskeletal History: No Pertinent History GI Medical History: Colitis, Diverticulitis History: No Pertinent History, Other Psycho-Social History: No Pertinent History Male Reproductive Disorders: Prostate Problems Other Medical History: ENLARGED PROSTATE - Past Surgical History Past Surgical History: Yes Neuro Surgical History: No Pertinent History Cardiac: No Pertinent History Respiratory: No Pertinent History Gastrointestinal: Hernia Repair Genitourinary: No Pertinent History Musculoskeletal: No Pertinent History Male Surgical History: No Pertinent History Other Surgical History: RIGHT INGUINAL HERNIA and colonoscopy - Social History Smoking Status: Former smoker Exposure to second hand smoke: No Drug Use: none Patient Lives Alone: Yes - Nursing Vital Signs Nursing Vital Signs: Initial Vital Signs Temperature 97.0 F 05/31/22 02:39 Pulse Rate 86 05/31/22 02:39 Respiratory Rate 18 05/31/22 02:39 O2 Sat by Pulse Oximetry 97 05/31/22 02:39 Pain Scale Pain Intensity [Right Back] 9 Pain Intensity 9 - Physical Exam General Appearance: no apparent distress, alert Eye Exam: PERRL/EOMI, eyes nml inspection Ears, Nose, Throat Exam: normal ENT inspection, TMs normal, pharynx normal, moist mucous membranes Neck Exam: normal inspection, non-tender, supple, full range of motion Respiratory Exam: normal breath sounds, lungs clear, No respiratory distress Cardiovascular Exam: regular rate/rhythm, normal heart sounds, normal peripheral pulses Gastrointestinal/Abdomen Exam: soft, tenderness, other (Right flank tenderness to palpation no abdominal rebound or guarding.), No mass Back Exam: normal inspection, normal range of motion, No CVA tenderness, No vertebral tenderness Extremity Exam: normal inspection, normal range of motion, pelvis stable Neurologic Exam: alert, oriented x 3, cooperative, normal mood/affect, nml cerebellar function, nml station & gait, sensation nml, No motor deficits Skin Exam: normal color, warm, dry, No rash Lymphatic Exam: No adenopathy SpO2: 97 - Course Nursing assessment & vital signs reviewed: Yes Ordered Tests: Active Orders 24 hr Category Date Time Status IV Insertion STAT Care 05/31/22 02:40 Active ABDOMEN AND PELVIS W/0 CONTRAS [CT] Stat Exams 05/31/22 02:41 Taken CBC W DIFF Stat Lab 05/31/22 02:51 Completed CMP Stat Lab 05/31/22 02:51 Completed UA W/RFX UR CULTURE Stat Lab 05/31/22 03:18 Completed Medication Summary Discontinued Medications Generic Name Dose Route Start Last Admin Trade Name Freq PRN Reason Stop Dose Admin Ketorolac Tromethamine 30 mg 05/31/22 02:40 05/31/22 03:03 Ketorolac Tromethamine 30 Mg/Ml Inj IV 05/31/22 02:41 30 mg STAT ONE Administration Ketorolac Tromethamine Confirm 05/31/22 02:52 Ketorolac Tromethamine 30 Mg/Ml Inj Administered 05/31/22 02:53 Dose 30 mg .ROUTE .STK-MED ONE Ondansetron HCl 4 mg 05/31/22 02:40 05/31/22 03:03 Ondansetron Hcl 4 Mg/2 Ml Vial IV 05/31/22 02:41 4 mg STAT ONE Administration Ondansetron HCl Confirm 05/31/22 02:52 Ondansetron Hcl 4 Mg/2 Ml Vial Administered 05/31/22 02:53 Dose 4 mg .ROUTE .STK-MED ONE Lab/Rad Data: Laboratory Result Diagrams 05/31/22 02:51 05/31/22 02:51 Laboratory Results 05/31/22 05/31/22 05/31/22 Range/Units 03:18 02:51 02:51 WBC 17.0 H (4.0-10.5) x10^3/uL RBC 5.26 (4.1-5.6) x10^6/uL Hgb 16.1 (12.5-18.0) g/dL Hct 48.0 (42-50) % MCV 91.3 (78-100) fL MCH 30.6 (26-32) pg MCHC 33.5 (32-36) g/dL RDW 12.8 (11.5-14.0) % Plt Count 310 (150-450) x10^3/uL MPV 8.9 (7.5-11.0) fL Gran % 83.7 H (36.0-66.0) % Immature Gran % (Auto) 0.4 (0.00-0.4) % Nucleat RBC Rel Count 0.0 (0.00-0.1) % Eos # (Auto) 0.11 (0-0.5) x10^3/uL Immature Gran # (Auto) 0.07 H (0.00-0.03) x10^3u/L Absolute Lymphs (auto) 1.78 (1.0-4.6) x10^3/uL Absolute Monos (auto) 0.73 (0.0-1.3) x10^3/uL Absolute Nucleated RBC 0.00 (0.00-0.01) x10^3u/L Lymphocytes % 10.5 L (24.0-44.0) % Monocytes % 4.3 (0.0-12.0) % Eosinophils % 0.6 (0.00-5.0) % Basophils % 0.5 (0.0-0.4) % Absolute Granulocytes 14.17 H (1.4-6.9) x10^3/uL Basophils # 0.09 (0-0.4) x10^3/uL Sodium 140 (137-145) mmol/L Potassium 3.2 L (3.5-5.1) mmol/L Chloride 103 (98-107) mmol/L Carbon Dioxide 28 (22-30) mmol/L Anion Gap 12.2 (5-15) MEQ/L BUN 15 (9-20) mg/dL Creatinine 1.26 H (0.66-1.25) mg/dL Estimated GFR > 60.0 ML/MIN Glucose 156 H (74-106) mg/dL Calcium 10.7 H (8.4-10.2) mg/dL Total Bilirubin 0.70 (0.2-1.3) mg/dL AST 21 (17-59) U/L ALT 16 (0-50) U/L Alkaline Phosphatase 99 (38-126) U/L Serum Total Protein 7.7 (6.3-8.2) g/dL Albumin 4.6 (3.5-5.0) g/dL Urine Color Yellow (Yellow) Urine Appearance Turbid A (Clear) Urine pH 8.0 (4.6-8.0) Ur Specific [place] 1.010 (1.005-1.030) Urine Protein Negative (Negative) Urine Glucose (UA) Negative (Negative) mg/dL Urine Ketones Negative (Negative) Urine Blood Moderate A (Negative) Urine Nitrite Negative (Negative) Urine Bilirubin Negative (Negative) Urine Urobilinogen 1.0 A (0.2) mg/dL Ur Leukocyte Esterase Negative (Negative) U Hyaline Cast (Auto) NONE SEEN (0-2) /LPF Urine Microscopic RBC 21-50 A (0-5) /HPF Urine Microscopic WBC 0-2 (0-5) /HPF Ur Epithelial Cells None Seen (None Seen) /HPF Urine Bacteria None Seen (None Seen) /HPF Urine Culture Reflexed NO (NO) - Progress Progress: improved Progress Note: 05/31/22 03:12 differential diagnosis includes kidney stone, compression fracture, infection, UTI, triple AAA - basic labs including: CBC, lipase, CMP, UA - insert IV for fluids, pain meds, nausea control - consider imaging: CT ab/pelvis 05/31/22 03:42 CT scan shows kidney stones on the right. Creatinine is at about baseline. Patient does have an elevated white blood cell count. But most likely part of the inflammation from the kidney stone. Otherwise no signs of infection. No fever, tachycardia, no signs of a UTI on UA. Plan for discharge home at this point time. Patient will need close follow-up with PCP. May return here sooner for any new or changing symptoms. - Departure Departure Disposition: Home Clinical Impression: Kidney stone on right side Condition: Stable Critical Care Time: No Referrals: ETHEL GARNER MD [Primary Care Provider] - Follow up/PCP as directed Instructions: Kidney Stones in Adults Prescriptions: Lidocaine [Blue-Emu Lidocaine Patch] 1 each TP DAILY 7 Days #7 patch Cyclobenzaprine HCl 10 mg [Flexeril 10 MG] 10 mg PO TID #12 tablet Naproxen 500 mg [Naprosyn 500 MG] 500 mg PO BID #10 tablet
[2022-05-31 03:09] LABS: ALBUMIN 4.6 g/dL (3.5-5.0); ALKALINE PHOSPHATASE 99 U/L (38-126); ANION GAP 12.2 MEQ/L (5-15); BLOOD UREA NITROGEN 15 mg/dL (9-20); CHLORIDE 103 mmol/L (98-107); Calcium 10.7 mg/dL (8.4-10.2); Carbon Dioxide 28 mmol/L (22-30); Creatinine 1 1.26 mg/dL (0.66-1.25); EST GLOMERULAR FILTRATION RATE > 60.0 ML/MIN; Glucose 156 mg/dL (74-106); Potassium 3.2 mmol/L (3.5-5.1); SGOT/AST 21 U/L (17-59); SGPT/ALT 16 U/L (0-50); SODIUM 140 mmol/L (137-145); Total Protein 7.7 g/dL (6.3-8.2)
[2022-05-31 03:34] LABS: Appearance Turbid (Clear); Bacteria None Seen /HPF (None Seen); Bilirubin Negative (Negative); Blood Moderate (Negative); Epithelial Cells None Seen /HPF (None Seen); Glucose, Urine Negative (Negative); Hyaline Casts NONE SEEN /LPF (0-2); Ketones Negative (Negative); Leukocyte Esterase Negative (Negative); Nitrite Negative (Negative); Protein,Urine Dip Negative (Negative); RBC 21-50 /HPF (0-5); WBC 0-2 /HPF (0-5)
[2022-05-31 03:36] LABS: ADD URINE CULTURE? NO (NO)
[2022-05-31 03:48] VITALS: PULSE 81
--- NOTE | 2022-05-31 09:24 | XRAY ---
Indication: Right lower quadrant/right flank pain. Multiple contiguous axial images obtained through the abdomen and pelvis without contrast using renal stone protocol. Comparison: None Study is slightly degraded by respiration artifact throughout. Lung bases again demonstrates minimal fibrosis/scarring. Heart not enlarged. New 4-5 mm distal right ureter calculus approximately 4 cm proximal to the UVJ. Minimal hydroureter and mild hydronephrosis consistent with partial obstructive uropathy. Left kidney demonstrates new nonobstructing 1 mm and 2 mm calculi. Posterior urinary bladder demonstrates stable subcentimeter midline calculus versus bladder wall calcification. Again enlarged/nodular prostate gland impressing on the base of the urinary bladder. Noncontrasted stomach and bowel loops appear nonobstructed. Appendix not visualized. Again mild sigmoid diverticulosis without diverticulitis. There is now mild diffuse scattered colonic fecal debris throughout. Worsening numerous centimeter/subcentimeter gallstones without abnormal biliary distention. Inferior medial right lobe liver demonstrates new 8 mm cyst. Remaining liver, pancreas, spleen, adrenal glands, kidneys, ureters, and bladder are unremarkable for noncontrast exam. Again mild scattered aortoiliac calcifications. Osseous structures intact again with grossly stable multilevel thoracolumbar lytic and sclerotic lesions favored to be benign given stability over the years. Again small fatty bilateral inguinal hernias. Impression: 1. Respiration artifact. 2. New 4-5 mm distal right ureter calculus producing obstructive uropathy. New nonobstructing left renal micro-calculi. 3. Stable posterior urinary bladder micro-calculus versus bladder wall calcification. 4. New mild diffuse fecal stasis. 5. Worsening cholelithiasis better evaluated with sonogram if clinically warranted. 6. New tiny hepatic cyst. 7. Again sigmoid diverticulosis, enlarged/nodular prostate gland, fatty bilateral inguinal hernias, arteriosclerotic disease, and chronic bony findings. Comment: Preliminary interpretation made by [facility]. No critical discrepancy.
== END 2022-05-31 04:00 | disposition home or self-care (01) ==
LOC: ED 02:31
DX: N20.0 Calculus of kidney (principal); Z87.442 Personal history of urinary calculi; R10.9 Unspecified abdominal pain; I10 Essential (primary) hypertension; Z79.899 Other long term (current) drug therapy; Z28.310 Unvaccinated for COVID-19
CPT/HCPCS: 36000; 36415; 74176; 80053; 81001; 85025; 96374; 96375; 99284; J1885; J2405

== ENCOUNTER 2024-02-19 01:38 | Emergency (ER) | payer MEDICARE, OTHER ==
[2024-02-19 01:46] VITALS: TEMP 98.2
--- NOTE | 2024-02-19 02:22 | ERPHSYRPT ---
- History of Present Illness Time Seen by Provider: 02/19/24 02:21 Historian: patient Exam Limitations: no limitations Patient Subjective Stated Complaint: Abdominal pain, troubles "moving bowels" Triage Nursing Assessment: +++ Physician History: The patient presents with acute onset of right-sided back pain that radiates to the anterior abdomen. They describe the pain as severe, rating it as an 8 or 9 out of 10. The patient reports a history of kidney stones, all of which have passed spontaneously. They also note a possible mild dysuria but deny hematuria. In addition to the pain, the patient reports constipation, requiring the use of stool softeners. They deny any blood in the stool. The patient denies any known kidney disease and does not regularly see a doctor. They also deny taking any medications such as Flomax. The patient's symptoms, particularly the location and nature of the pain, along with their past medical history, suggest a possible recurrent kidney stone. However, the patient's constipation and potential dysuria introduce additional considerations for their current presentation. Timing/Duration: today Activities at Onset: rest Quality: sharpness Abdominal Pain Onset Location: flank (left) Pain Radiation: groin Severity of Pain-Max: moderate Severity of Pain-Current: moderate Modifying Factors: Improves With: nothing. Worsens With: movement, palpation, urinating, position Associated Symptoms: back, No chest pain, No diaphoresis, No diarrhea, No fever/chills, No nausea, No neck pain, No testicular pain, No vomiting Previous symptoms: same symptoms as today Allergies/Adverse Reactions: No Known Drug Allergies Allergy (Verified 02/19/24 01:44) Home Medications: Amlodipine Besylate 10 mg [Norvasc 10 MG] 10 mg PO DAILY 04/25/12 [History] Lisinopril 20 mg PO DAILY 04/25/12 [History] Omeprazole [Prilosec] 40 mg PO DAILY 04/25/12 [History] Hx Tetanus, Diphtheria Vaccination/Date Given: No Hx Influenza Vaccination/Date Given: No Hx Pneumococcal Vaccination/Date Given: No Immunizations Up to Date: No Travel Risk - International Travel Have you traveled outside of the country in past 3 weeks: No - Emerging Infectious Disease Are you exhibiting symptoms associated with any current EIDs: Yes Symptoms: Abdominal Pain - Review of Systems All Other Systems: Reviewed and Negative - Past Medical History Pertinent Past Medical History: Yes Neurological History: No Pertinent History ENT History: No Pertinent History Cardiac History: Hypertension Respiratory History: No Pertinent History Endocrine Medical History: No Pertinent History Musculoskeletal History: No Pertinent History GI Medical History: Colitis, Diverticulitis History: Other Psycho-Social History: No Pertinent History Male Reproductive Disorders: Prostate Problems Other Medical History: ENLARGED PROSTATE - Past Surgical History Past Surgical History: Yes Neuro Surgical History: No Pertinent History Cardiac: No Pertinent History Respiratory: No Pertinent History Gastrointestinal: Hernia Repair Genitourinary: No Pertinent History Musculoskeletal: No Pertinent History Male Surgical History: No Pertinent History Other Surgical History: RIGHT INGUINAL HERNIA and colonoscopy - Social History Smoking Status: Former smoker Exposure to second hand smoke: No Drug Use: none Patient Lives Alone: Yes - Social Determinants of Health Will the patient participate in the screening: Declined to provide - Nursing Vital Signs Nursing Vital Signs: Initial Vital Signs Temperature 98.2 F 02/19/24 01:38 Pulse Rate 78 02/19/24 01:38 Respiratory Rate 18 02/19/24 01:38 Blood Pressure 212/117 02/19/24 01:38 O2 Sat by Pulse Oximetry 95 02/19/24 01:38 Pain Scale Pain Intensity 2 - Physical Exam General Appearance: no apparent distress Gastrointestinal/Abdomen Exam: soft, normal bowel sounds, tenderness (LLQ, left flank), guarding, No distention, No rebound Back Exam: normal inspection, normal range of motion, CVA tenderness (left) Neurologic Exam: alert, oriented x 3, cooperative Skin Exam: normal color, warm, dry SpO2 Interpretation: normal SpO2: 95 O2 Delivery: Room Air - Course Nursing assessment & vital signs reviewed: Yes - CT Exams Abdomen/Pelvis CT Interpretation: Tele-radiologist Report, Other (obstructing left renal calculus 5mm x 3.5mm) Ordered Tests: Active Orders 24 hr Category Date Time Status IV Insertion STAT Care 02/19/24 02:22 Active ABDOMEN AND PELVIS W/0 CONTRAS [CT] Stat Exams 02/19/24 02:22 Completed CBC W DIFF Stat Lab 02/19/24 02:33 Completed CMP Stat Lab 02/19/24 02:33 Completed CULTURE,URINE Stat Lab 02/19/24 02:51 Received LIPASE Stat Lab 02/19/24 02:33 Completed Lactic Acid Stat Lab 02/19/24 02:30 Completed TROPONIN Q4H Lab 02/19/24 02:33 Completed TROPONIN Q4H Lab 02/19/24 06:30 Ordered TROPONIN Q4H Lab 02/19/24 10:30 Ordered UA W/RFX UR CULTURE Stat Lab 02/19/24 02:51 Completed Medication Summary Discontinued Medications Generic Name Dose Route Start Last Admin Trade Name Kamran PRN Reason Stop Dose Admin Enalaprilat 2.5 mg 02/19/24 02:44 02/19/24 02:56 Enalaprilat 2.5 Mg Injection IV 02/19/24 02:45 2.5 mg STAT ONE Administration Enalaprilat Confirm 02/19/24 02:54 Enalaprilat 2.5 Mg Injection Administered 02/19/24 02:55 Dose 2.5 mg IV .STK-MED ONE Sodium Chloride 1,000 mls @ 999 mls/hr 02/19/24 02:22 02/19/24 02:44 Sodium Chloride 0.9% 1000 Ml IV 02/19/24 03:22 999 mls/hr .Q1H1M STA Administration Sodium Chloride Confirm 02/19/24 02:30 Sodium Chloride 0.9% 1000 Ml Administered 02/19/24 02:31 Dose 1,000 mls @ ud .ROUTE .STK-MED ONE Ketorolac Tromethamine 30 mg 02/19/24 02:22 02/19/24 02:43 Ketorolac Tromethamine 30 Mg/Ml Inj IV 02/19/24 02:23 30 mg STAT ONE Administration Ketorolac Tromethamine Confirm 02/19/24 02:30 Ketorolac Tromethamine 30 Mg/Ml Inj Administered 02/19/24 02:31 Dose 30 mg .ROUTE .STK-MED ONE Tamsulosin HCl 0.4 mg 02/19/24 02:23 02/19/24 02:43 Tamsulosin Hcl 0.4 Mg Cap PO 02/19/24 02:24 0.4 mg ONCE ONE Administration Tamsulosin HCl Confirm 02/19/24 02:30 Tamsulosin Hcl 0.4 Mg Cap Administered 02/19/24 02:31 Dose 0.4 mg .ROUTE .STK-MED ONE Lab/Rad Data: Laboratory Result Diagrams 02/19/24 02:33 02/19/24 02:33 Laboratory Results 10/13/24 10/13/24 10/13/24 Range/Units 02:51 02:33 02:33 WBC (4.23-9.07) x10^3/uL RBC (4.63-6.08) x10^6/uL Hgb (13.7-17.5) g/dL Hct (40.1-51.0) % MCV (79.0-92.2) fL MCH (25.7-32.2) pg MCHC (32.3-36.5) g/dL RDW (11.6-14.4) % Plt Count (163-337) x10^3/uL MPV (9.4-12.4) fL Gran % (34.0-67.9) % Immature Gran % (Auto) (0.001-0.429) % Nucleat RBC Rel Count (0.00-0.2) % Eos # (Auto) (0.04-0.54) x10^3/uL Immature Gran # (Auto) (0.001-0.031) x10^3u/L Absolute Lymphs (auto) (1.32-3.57) x10^3/uL Absolute Monos (auto) (0.30-0.82) x10^3/uL Absolute Nucleated RBC (0.00-0.012) x10^3u/L Lymphocytes % (21.8-53.1) % Monocytes % (5.3-12.2) % Eosinophils % (0.8-7.0) % Basophils % (0.2-1.2) % Absolute Granulocytes (1.78-5.38) x10^3/uL Basophils # (0.01-0.08) x10^3/uL Sodium 142 (135-145) mmol/L Potassium 4.1 (3.5-5.1) mmol/L Chloride 105 (98-107) mmol/L Carbon Dioxide 27 (22-30) mmol/L Anion Gap 14.0 (5-15) MEQ/L BUN 18 (9-20) mg/dL Creatinine 1.76 H (0.66-1.25) mg/dL Estimated GFR 40.8 ML/MIN Glucose 141 H (74-106) mg/dL Lactic Acid (0.4-2.0) Calcium 10.4 H (8.4-10.2) mg/dL Total Bilirubin 1.00 (0.2-1.3) mg/dL AST 18 (17-59) U/L ALT 18 (0-50) U/L Alkaline Phosphatase 113 (38-126) U/L Troponin I < 0.012 (0.000-0.033) ng/mL Serum Total Protein 6.5 (6.3-8.2) g/dL Albumin 4.0 (3.5-5.0) g/dL Lipase 96 (23-300) U/L Urine Color Yellow (Yellow) Urine Appearance Clear (Clear) Urine pH 7.0 (4.6-8.0) Ur Specific [place] 1.015 (1.005-1.030) Urine Protein 30 (Negative) Urine Glucose (UA) Negative (Negative) mg/dL Urine Ketones Negative (Negative) Urine Blood Large A (Negative) Urine Nitrite Negative (Negative) Urine Bilirubin Negative (Negative) Urine Urobilinogen 1.0 A (0.2) mg/dL Ur Leukocyte Esterase Negative (Negative) U Hyaline Cast (Auto) NONE SEEN (0-2) /LPF Urine Microscopic RBC >100 A (0-5) /HPF Urine Microscopic WBC 0-2 (0-5) /HPF Ur Epithelial Cells None Seen (None Seen) /HPF Urine Bacteria None Seen (None Seen) /HPF Urine Culture Reflexed YES (NO) 02/19/24 02/19/24 Range/Units 02:33 02:30 WBC 11.9 H (4.23-9.07) x10^3/uL RBC 4.67 (4.63-6.08) x10^6/uL Hgb 14.3 (13.7-17.5) g/dL Hct 42.5 (40.1-51.0) % MCV 91.0 (79.0-92.2) fL MCH 30.6 (25.7-32.2) pg MCHC 33.6 (32.3-36.5) g/dL RDW 13.2 (11.6-14.4) % Plt Count 271 (163-337) x10^3/uL MPV 9.5 (9.4-12.4) fL Gran % 67.4 (34.0-67.9) % Immature Gran % (Auto) 0.3 (0.001-0.429) % Nucleat RBC Rel Count 0.0 (0.00-0.2) % Eos # (Auto) 0.77 H (0.04-0.54) x10^3/uL Immature Gran # (Auto) 0.04 H (0.001-0.031) x10^3u/L Absolute Lymphs (auto) 2.17 (1.32-3.57) x10^3/uL Absolute Monos (auto) 0.81 (0.30-0.82) x10^3/uL Absolute Nucleated RBC 0.00 (0.00-0.012) x10^3u/L Lymphocytes % 18.2 L (21.8-53.1) % Monocytes % 6.8 (5.3-12.2) % Eosinophils % 6.5 (0.8-7.0) % Basophils % 0.8 (0.2-1.2) % Absolute Granulocytes 8.02 H (1.78-5.38) x10^3/uL Basophils # 0.10 H (0.01-0.08) x10^3/uL Sodium (135-145) mmol/L Potassium (3.5-5.1) mmol/L Chloride (98-107) mmol/L Carbon Dioxide (22-30) mmol/L Anion Gap (5-15) MEQ/L BUN (9-20) mg/dL Creatinine (0.66-1.25) mg/dL Estimated GFR ML/MIN Glucose (74-106) mg/dL Lactic Acid 1.0 (0.4-2.0) Calcium (8.4-10.2) mg/dL Total Bilirubin (0.2-1.3) mg/dL AST (17-59) U/L ALT (0-50) U/L Alkaline Phosphatase (38-126) U/L Troponin I (0.000-0.033) ng/mL Serum Total Protein (6.3-8.2) g/dL Albumin (3.5-5.0) g/dL Lipase (23-300) U/L Urine Color (Yellow) Urine Appearance (Clear) Urine pH (4.6-8.0) Ur Specific [place] (1.005-1.030) Urine Protein (Negative) Urine Glucose (UA) (Negative) mg/dL Urine Ketones (Negative) Urine Blood (Negative) Urine Nitrite (Negative) Urine Bilirubin (Negative) Urine Urobilinogen (0.2) mg/dL Ur Leukocyte Esterase (Negative) U Hyaline Cast (Auto) (0-2) /LPF Urine Microscopic RBC (0-5) /HPF Urine Microscopic WBC (0-5) /HPF Ur Epithelial Cells (None Seen) /HPF Urine Bacteria (None Seen) /HPF Urine Culture Reflexed (NO) - Progress Progress: improved Progress Note: 02/19/24 02:38 Suspected Kidney Stone Right flank pain radiating to the anterior abdomen, with a history of kidney stones. No hematuria reported. Mild dysuria reported. No fever. -Order labs and CT scan to confirm diagnosis. -Administer IV fluids for hydration. -Consider administration of Flomax (Tamsulosin) to facilitate stone passage. -Toradol 30mg IV for pain -UA ordered. Constipation Reports more intake than output, requiring stool softeners. -Continue stool softeners as needed. 02/19/24 03:49 Found to have a 5mm x 3.5mm obstructing stone in left ureter. Cholelithiasis without cholecystitis. Pain controlled, no need for immediate intervention at this time. Will dc with Toradol and Flomax and see if they can pass stone. Advise follow up with urology. Counseled pt/family regarding: lab results, diagnosis, need for follow-up, rad results Medical Desision Making - Diagnostic Testing Diagnostic test were ordered, analyzed, and reviewed by me: Yes Radiological Interpretation: Interpreted by me, Reviewed by me, Teleradiologist Report - Risk of complications The pt has a mod risk of morbidity or mortality based on: Need for prescription drug management - Departure Departure Disposition: Home Clinical Impression: DANUTA (acute kidney injury), Ureterolithiasis Condition: Good Critical Care Time: No Referrals: ETHEL GARNER MD [Primary Care Provider] - Follow up/PCP as directed CODIE GONZALES DO [NON-STAFF PHY W/O PRIVILEGES] - Follow up/PCP as directed Instructions: Kidney stones in adults Prescriptions: Tamsulosin HCl 0.4 mg [Flomax 0.4 MG] 0.4 mg PO DAILY 30 Days #30 cap Ketorolac Trometh 10 mg Tab [TORAdol 10 MG TABLET] 10 mg PO TID PRN 5 Days #15 tablet PRN Reason: Pain
[2024-02-19] MEDS ORDERED: Sodium Chloride 0.9% 1000 ML 1,000 ML ONE (02:30)
[2024-02-19] MEDS ORDERED: Flomax 0.4 MG ONE (02:30)
[2024-02-19] MEDS ORDERED: TORAdol 30 mg Injection ONE (02:30)
[2024-02-19 02:37] LABS: Absolute Neutrophil Ct (ANC) 8.02 x10^3/uL (1.78-5.38); BASOPHIL % 0.8 % (0.2-1.2); Eosinophil % 6.5 % (0.8-7.0); Eosinophil (Absolute #) 0.77 x10^3/uL (0.04-0.54); Hematocrit 42.5 % (40.1-51.0); Hemoglobin 14.3 g/dL (13.7-17.5); IMMATURE GRAN # 0.04 x10^3u/L (0.001-0.031); IMMATURE GRAN % 0.3 % (0.001-0.429); Lymphocyte (Absolute #) 2.17 x10^3/uL (1.32-3.57); Lymphocytes % 18.2 % (21.8-53.1); Mean Corpuscular Hemoglobin 30.6 pg (25.7-32.2); Mean Corpuscular Hgb Concent. 33.6 g/dL (32.3-36.5); Mean Platelet Volume 9.5 fL (9.4-12.4); Monocyte (Absolute #) 0.81 x10^3/uL (0.30-0.82); Monocytes % 6.8 % (5.3-12.2); Neutrophil % 67.4 % (34.0-67.9); Platelet Count 271 x10^3/uL (163-337); Red Blood Count 4.67 x10^6/uL (4.63-6.08); Red Cell Distribution Width 13.2 % (11.6-14.4); White Blood Count 11.9 x10^3/uL (4.23-9.07)
[2024-02-19] MEDS: TORAdol 30 mg Injection IV ONE (02:43)
[2024-02-19] MEDS: Flomax 0.4 MG PO ONE (02:43)
[2024-02-19] MEDS: Sodium Chloride 0.9% 1000 ML 1,000 ML IV STA (02:44)
[2024-02-19 02:48] LABS: Calcium 10.4 mg/dL (8.4-10.2); Creatinine 1 1.76 mg/dL (0.66-1.25); EST GLOMERULAR FILTRATION RATE 40.8 ML/MIN; Potassium 4.1 mmol/L (3.5-5.1); Total Protein 6.5 g/dL (6.3-8.2)
[2024-02-19] MEDS ORDERED: ENALAPRILAT 2.5 MG INJECTION IV ONE (02:54)
[2024-02-19] MEDS: ENALAPRILAT 2.5 MG INJECTION IV ONE (02:56)
[2024-02-19 03:00] LABS: Appearance Clear (Clear); Bacteria None Seen /HPF (None Seen); Bilirubin Negative (Negative); Blood Large (Negative); Epithelial Cells None Seen /HPF (None Seen); Glucose, Urine Negative (Negative); Hyaline Casts NONE SEEN /LPF (0-2); Ketones Negative (Negative); Leukocyte Esterase Negative (Negative); Nitrite Negative (Negative); Protein,Urine Dip 30 (Negative); RBC >100 /HPF (0-5); Specific Gravity 1.015 (1.005-1.030); WBC 0-2 /HPF (0-5)
--- NOTE | 2024-02-19 03:35 | XRAY ---
CLINICAL HISTORY: abd pain COMPARISON: None. TECHNIQUE: Contiguous axial images were obtained from the level of the diaphragm to the pubic symphysis without intravenous or oral contrast. Coronal and sagittal reconstructions were likewise performed and indicated to increase the sensitivity for detecting clinically relevant pathology. CT scan was performed according to ALARA (as low as reasonably achievable). FINDINGS: The visualized lung bases do not reveal any significant abnormality. Evaluation of the abdominal and pelvic visceral organs is limited without intravenous contrast. The unenhanced liver, spleen, pancreas, and adrenal glands are grossly unremarkable. Multiple calculi are noted in the gallbladder. No signs of acute cholecystitis. Left kidney appears bulky. Perinephric fat stranding is noted. 5 x 3.5 mm calculus with average CT value 700-800 HU is noted in the left proximal ureter approximately 5-6 cm from the pelviureteric junction. Mild proximal hydroureteronephrosis noted. 4 tiny 2-3 mm radiodense calculi/concretions are noted in the lower pole calyx of left kidney. Small focus of parenchymal calcification is noted involving lower pole of left kidney Right kidney and ureter appear normal. No adenopathy or fluid collections are seen. No evidence of focal or diffuse bowel wall thickening or evidence of bowel obstruction is seen. Few uncomplicated sigmoid diverticuli are noted. Faecal loading of the large bowel is noted. Prostate is enlarged with median lobe hypertrophy. It measures 5 x 5.5 x 6.4 cm (AP x TR x CC). Multiple intraprostatic calcifications are noted. The aorta is normal in caliber. The urinary bladder is normal in contour and tiny dependent calculus of 3mm. Pelvic viscera are grossly unremarkable. No aggressive appearing osseous lesions are identified. IMPRESSION: 1. 5 x 3.5 mm obstructing calculus in the left proximal ureter with changes of obstructive uropathy as described above. 2. Few tiny left renal calculi and vesical calculus. 3. Prostatomegaly with median lobe hypertrophy. 4. Cholelithiasis without signs of acute cholecystitis. 5. Few uncomplicated sigmoid diverticulae. Electronically Signed by: Efraín Lizama MD. (02/19/2024 03:30:41 EDT)
[2024-02-19 04:00] VITALS: PULSE 77; RESP 18
[2024-02-19 04:01] VITALS: BP 185/104; O2SAT 96
== END 2024-02-19 04:30 | disposition home or self-care (01) ==
LOC: ED 01:38
DX: N17.9 Acute kidney failure, unspecified (principal); N13.2 Hydronephrosis with renal and ureteral calculous obstruction; M54.9 Dorsalgia, unspecified; R10.9 Unspecified abdominal pain; I10 Essential (primary) hypertension; Z79.899 Other long term (current) drug therapy
CPT/HCPCS: 36000; 36415; 74176; 80053; 81001; 83605; 83690; 84484; 85025; 87086; 96360; 96374; 96375; 99284; J1885; A9270-GY